=== PATIENT | male | born 1990 | race Caucasian/White ===

== ENCOUNTER 2017-02-27 21:21 | Emergency (ER) | payer OTHER ==
[~2017-02-27] VITALS: Ht 182.9 cm; Wt 163.0 kg
[2017-02-27 21:25] VITALS: Ht 182.9 cm; Wt 163.0 kg
[2017-02-27] MEDS ORDERED: HYDROCODONE/APAP (10/325) TAB PO ONE (22:30)
--- NOTE | 2017-02-27 22:31 | RADRPT ---
AMENDMENT: 03/09/2017 12:05:53 AM Conchita Garcia M.D One or more of the following dose reduction techniques were used: - Automated exposure control. - Adjustment of the mA and/or kV according to patient size. - Use of iterative reconstruction technique. PROCEDURE: CT CERVICAL SPINE WITHOUT CONTRAST CLINICAL INDICATION: 26 years of age, male. trauma. TECHNIQUE: A CT of the cervical spine was performed utilizing thin section axial images from the s kull base through the thoracic inlet. Sagittal and coronal reformatted images were made. The CTDI vol is 22 mGy and the DLP is 526 mGy-cm. COMPARISON: No prior studies are available for comparison. FINDINGS: Cervical spine is imaged from the skull base to T1 Alignment: Normal. Vertebrae: Vertebral bodies and posterior elements are intact without acute fracture. There is no significant degenerative change. Extra-vertebral soft tissues: Prominent lymph nodes are likely reactive. Additional comment: None. IMPRESSION: Negative for evidence of acute fracture or traumatic subluxation of cervical spine. RPTAT: HCTS Physician Emre Date Time Electronically viewed and signed by Physician Emre on 03/09/2017 00:07 /
--- NOTE | 2017-02-27 22:31 | RADRPT ---
PROCEDURE: CT brain without contrast. CLINICAL INDICATION: Injury and pain. TECHNIQUE: CT scan of the brain was performed on a multi-detector high-resolution CT scanner. Co ntiguous axial images were obtained from the skull base to the vertex without intravenous contrast. Coronal and sagittal reformatted images were also obtained. Images were reviewed on the PACS works tation. One or more of the following dose reduction techniques were used: - Automated exposure control. - Adjustment of the mA and/or kV according to patient size. - Use of iterative reconstruction technique. Exam CTD/vol = 43.58 mGy. Total exam DLP = 810.25 mGy-cm. COMPARISON: None. FINDINGS: The ventricles and cortical sulci are within normal limits for patient's age. There are no areas of abnormal attenuation within the brain parenchyma. There is no mass effect or midline shift. There is no intracranial hemorrhage or abnormal extra-axial collection. The calvarium is intact. There is no evidence of fracture. There is minimal paranasal sinus inflamma tory disease within bilateral maxillary sinuses. Bilateral mastoid air cells are clear. IMPRESSION: No acute intracranial abnormality identified. Minimal paranasal sinus inflammatory disease. .Pb Self MD, MD Date Time Electronically viewed and signed by .Pb Self MD, MD on 02/27/2017 22:31 .T/
[2017-02-27] MEDS ORDERED: HYDR-906 PO (22:39)
--- NOTE | 2017-02-27 22:49 | ERD ---
ER Documentation Chief Complaint Date/Time DATE: 02/27/17 TIME: 22:44 Chief Complaint hit by someone w/ helmet while playing football, neck pain headache, no ko HPI This is a 26-year-old male presents to the ER after he was hit by someone with a helmet while playing football. Patient states that he does not remember what happened or any of the place after that. He did not lose consciousness he does not have any nausea or vomiting. His personal lines insurance advisor presents with him and states that patient is acting more slow. Patient is also complaining of neck pain, he presents in a c-collar. Per personal lines insurance advisor he did have some tenderness along C4-C5. She denies any numbness or tingling or weaknesses of his upper extremities. ROS 12 point review of systems was done, all negative except per HPI. Medications Home Meds Active Scripts Hydrocodone/Acetaminophen ([place] 5-325 Tablet) 1 Each Tablet, 1 TAB PO Q6H Y for PAIN, #20 TAB Prov:GAY VIEYRA 02/27/17 Allergies Allergies: Coded Allergies: No Known Allergy (Unverified , 02/27/17) PMhx/Soc History of Surgery: Yes ([employer] 2013) Anesthesia Reaction: No Hx Neurological Disorder: No Hx Respiratory Disorders: No Hx Cardiac Disorders: No Hx Psychiatric Problems: No Hx Miscellaneous Medical Probl: Yes (ADHD) Hx Alcohol Use: No Hx Substance Use: No Hx Tobacco Use: No Smoking Status: Never smoker Physical Exam Vitals Physical Exam GENERAL: The patient is well developed and appropriate for usual state of health , in no apparent distress. HEENT: Atraumatic. Conjunctivae are pink. Pupils equal, round, and reactive to light. Extraocular muscles are grossly intact. Bilateral tympanic membranes are clear with no evidence of erythema, effusion or dulling of the light reflex. The oropharynx is clear with no erythema or exudates. No raccoon eyes no leach sign. NECK: Patient was in a c-collar, c-collar was not removed as patient did have trauma to the area. CHEST: Clear to auscultation bilaterally. There are no rales, wheezes or rhonchi. HEART: Regular rate and rhythm. No murmurs, clicks, rubs or gallops. NEURO: Alert and oriented. Cranial nerves II through XII are intact. Motor strength in all 4 extremities with 5/5 strength. Sensation grossly intact. Normal speech and gait. SKIN: There is no apparent rash or petechia. The skin is warm and dry. Results 24 hrs Current Medications Medications (Trade) Dose Ordered Sig/Dank Route PRN Reason Start Time Stop Time Status Last Admin Dose Admin Acetaminophen/ Hydrocodone Bitart ([place] ()) 1 tab ONCE ONCE PO 02/27/17 22:30 02/27/17 22:31 DC 02/27/17 22:[address] [place] [address] Radiology Main Line: [phone] DIAGNOSTIC IMAGING REPORT Patient: CASSIDY MELGAR : 1990 Age: 26 Sex: M MR #: [id number] DOS: 02/27/17 0000 Ordering MD: GAY VIEYRA PA-C Location: [facility] Room/Bed: PROCEDURE: CT brain without contrast. CLINICAL INDICATION: Injury and pain. TECHNIQUE: CT scan of the brain was performed on a multi-detector high- resolution CT scanner. Contiguous axial images were obtained from the skull base to the vertex without intravenous contrast. Coronal and sagittal reformatted images were also obtained. Images were reviewed on the PACS workstation. One or more of the following dose reduction techniques were used: - Automated exposure control. - Adjustment of the mA and/or kV according to patient size. - Use of iterative reconstruction technique. Exam CTD/vol = 43.58 mGy. Total exam DLP = 810.25 mGy-cm. COMPARISON: None. FINDINGS: The ventricles and cortical sulci are within normal limits for patient's age. There are no areas of abnormal attenuation within the brain parenchyma. There is no mass effect or midline shift. There is no intracranial hemorrhage or abnormal extra-axial collection. The calvarium is intact. There is no evidence of fracture. There is minimal paranasal sinus inflammatory disease within bilateral maxillary sinuses. Bilateral mastoid air cells are clear. IMPRESSION: No acute intracranial abnormality identified. Minimal paranasal sinus inflammatory disease. .Pb Self MD, MD Date Time Electronically viewed and signed by .Pb Self MD, on 02/27/2017 22:31 .T/ CC: GAY VIEYRA DIAGNOSTIC IMAGING REPORT Patient: CASSIDY MELGAR : 1990 Age: 26 Sex: M MR #: [id number] DOS: 02/27/17 0000 Ordering MD: GAY VIEYRA. PA-C Location: [facility] Room/Bed: PROCEDURE: CT CERVICAL SPINE WITHOUT CONTRAST CLINICAL INDICATION: 26 years of age, male. trauma. TECHNIQUE: A CT of the cervical spine was performed utilizing thin section axial images from the skull base through the thoracic inlet. Sagittal and coronal reformatted images were made. The CTDI vol is 22 mGy and the DLP is 526 mGy-cm. COMPARISON: No prior studies are available for comparison. FINDINGS: Cervical spine is imaged from the skull base to T1 Alignment: Normal. Vertebrae: Vertebral bodies and posterior elements are intact without acute fracture. There is no significant degenerative change. Extra-vertebral soft tissues: Prominent lymph nodes are likely reactive. Additional comment: None. IMPRESSION: Negative for evidence of acute fracture or traumatic subluxation of cervical spine. RPTAT: HCTS Physician Emre Date Time Electronically viewed and signed by Physician Emre on 02/27/2017 22: 30 CS/ CC: GAY VIEYRA Procedures/MDM Differential diagnosis includes but is not limited to mild blunt head injury, concussion, skull fracture, subdural epidural hematoma, cerebral contusion, intracranial hemorrhage, spinal cord injury, cervical strain, impingement syndrome, transverse myelitis. This is a 26-year-old male presents to the ER after being hit in the head by another football player. Patient likely has a concussion. Suspicion for spinal cord injury is low, as patient does have full range of motion of his upper extremities and is intact to the radial ulnar and median nerves to sensation and movement. Patient was neurologically intact with no focal neurological deficits. He will be sent home with [place]. Patient is to follow-up with his primary care doctor within 1-2 days or return to ER sooner if symptoms worsen. My medical decision making was shared with patient and with his dramatic coach they understand and agree with plan. Departure Diagnosis: Primary Impression: Concussion Condition: Stable Patient Instructions: After a Concussion Additional Instructions: Call your primary care doctor TOMORROW for an appointment during the next 1-2 days.See the doctor sooner or return here if your condition worsens before your appointment time. GAY VIEYRA Feb 27, 2017 22:48
== END 2017-02-27 23:26 | disposition home or self-care (01) ==
LOC: FTE 21:21
DX: S06.0X0A Concussion without loss of consciousness, initial encounter (principal); S19.9XXA Unspecified injury of neck, initial encounter; W21.81XA Striking against or struck by football helmet, initial encounter; Y92.321 Football field as the place of occurrence of the external cause
CPT/HCPCS: 70450; 72125; Z7502; Z7610

== ENCOUNTER 2017-08-25 13:09 | Day surgery (SDC) | END 2017-08-25 19:12 | disposition home or self-care (01) ==